=== PATIENT | male | born 1960 | race African-American/Black ===

== ENCOUNTER 2021-05-24 19:17 | Emergency (ER) | payer BC, SELFPAY ==
[2021-05-24 19:48] VITALS: BP 151/107; PULSE 97; RESP 18; TEMP 36.5; O2SAT 100
[2021-05-24 21:12] VITALS: BP 177/105; PULSE 85; RESP 15; O2SAT 98
--- NOTE | 2021-05-24 21:32 | ED.MALEGU ---
HPI - Male Genitourinary General Chief complaint: Urogenital-Male Stated complaint: erectile dysfunction Time Seen by Provider: 05/24/21 20:35 History of Present Illness HPI Narrative: 61 yo male w/ h/o htn presents to the ED for priapism. He reports that he has had a continuos erection for the past 2-3 days. He now has moderate pain in his penis. Sensation is still intact. Denies taking medication for ED. No h/o sickle cell. He did take lisinopril, amlodipine, and ibuprofen before this started. Related Data Home Medications Medication Instructions Recorded Confirmed amlodipine 05/24/21 lisinopril 05/24/21 oxybutynin chloride mg PO 05/24/21 Allergies Allergy/AdvReac Type Severity Reaction Status Date / Time No Known Allergies Allergy Verified 05/24/21 21:28 Review of Systems Review of Systems: All systems reviewed & are unremarkable except as noted in HPI and below Constitutional: Constitutional: Reports no additional constitutional complaints Cardiovascular: Cardiovascular: Denies chest pain Respiratory: Respiratory: Denies dyspnea Gastrointestinal: Gastrointestinal: Reports no additional gastrointestinal complaints Genitourinary: Genitourinary: Reports as per HPI Neurologic: Reports system reviewed and no additional complaints, except as documented [facility] Past Medical History Medical History (Updated 05/24/21 @ 23:22 by Pete Whelan MD) Hypertension Social History Social History (Updated 05/24/21 @ 22:35 by Mira Irene MD) Smoking packs per day: 0 Smoking cigarettes per day: 0.0 Smoking status: Never smoker Alcohol intake: never Substance use: never Living arrangements: with family Occupation/Education: other 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 Gender identity (if verbalized by the patient): Male Exam Const: General: healthy appearing, no acute distress and alert Orientation/consciousness: patient oriented x3 HENMT: Head: normal to inspection Neck: Neck: normal visual inspection Resp: Effort & Inspection: normal respiratory effort Auscultation: clear to auscultation bilaterally, no rales, no rhonchi and no wheezes Cardio: Jugular venous distension: no JVD Rate: regular rate Rhythm: regular rhythm Heart sounds: no murmurs GI: Inspection: non-distended GI Palp: Yes Soft to palpation and No Tenderness to palpation present (GI) : Other: Erect circumcised penis. No sign of necrosis. Moderately tender. Skin: General skin exam: normal color Neuro: General: patient oriented x3 and moves all extremities Speech: normal speech Extrem: General: no edema Psych: Appearance: well kempt Affect: normal affect Course Vital Signs Vital signs: Vital Signs Temperature 36.5 C 05/24/21 19:48 Pulse Rate 97 05/24/21 19:48 Respiratory Rate 18 05/24/21 19:48 Blood Pressure 151/107 H 05/24/21 19:48 Pulse Oximetry 100 05/24/21 19:48 Temperature 36.5 C 05/24/21 19:48 Pulse Rate 91 05/24/21 23:54 Respiratory Rate 18 05/24/21 23:54 Blood Pressure 213/120 H 05/24/21 23:54 Pulse Oximetry 99 05/24/21 23:54 MDM - Male Genitourinary MDM Narrative Medical decision making narrative: Dr. Irene from urology called. SHe came to the ED and attempted treatment. This was unsuccessful. She helped arrange transfer [facility]. He has chosen to go by private vehicle due to EMS delays. His will drive him. I feel this is reasonable. Discharge Plan Discharge Clinical Impression: Priapism Patient Disposition: Acute Care Hospital Condition: Guarded Prognosis Prescriptions: No Action lisinopril 20 mg tablet RF: 0 amlodipine 10 mg tablet RF: 0 oxybutynin chloride 5 mg tablet extended release 24hr PO RF: 0 Follow-up/Referrals: Vu Dominguez MD [Primary Care Provider] -
--- NOTE | 2021-05-24 21:49 | PC.NURSE ---
urology at bedside at this time.
--- NOTE | 2021-05-24 22:27 | WPDURCON ---
Assessment and Plan Assessment and plan (1) Priapism: Code(s): N48.30 - Priapism, unspecified Status: Acute Assessment and Plan: 61 yo AAM presenting with 3 day history of priapism after resuming his hypertension meds. At the bedside, I performed an aspiration and irrigation of the penis and multiple phenylephrine injections (see separate procedure note). Despite working on him for an hour, I was unable to resolve his priapism. I explained that due to the prolonged course of the priapism and lack of response to irrigation/aspiration/phenylephrine, he will require a shunt to resolve the priapism. He will be transferred to an academic center where a distal and/or proximal shunt could be performed (Dr Andrade at [facility] has agreed to the transfer). He was also counseled that due to the fact that he has had priapism for three days, he has significant risk of prolonged issues with erectile dysfunction. Pt voiced understanding and is amenable to this transfer. Urology Consult Note HPI Date Seen: 05/24/21 Primary Care Provider: Vu Dominguez MD Consult Narrative Narrative: Gerald Cosme is a 61 year old male presenting to ER with 3 days of priapism. He states he has had a full erection for 3 days. This started shortly after resuming lisinopril and amlodipine. He denies use of any drugs for erectile dysfunction. No history or FH of sickle cell anemia. He denies any illicit drug usage. 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 Gender identity (if verbalized by the patient): Male Meds Home Medications and Allergies Home Medications Medication Instructions Recorded Confirmed Type amlodipine 05/24/21 History lisinopril 05/24/21 History oxybutynin chloride mg PO 05/24/21 History Allergies Allergy/AdvReac Type Severity Reaction Status Date / Time No Known Allergies Allergy Verified 05/24/21 21:28 Vital Signs Vital Signs - 24 hr 05/24/21 19:48 05/24/21 21:12 Temperature 36.5 C Pulse Rate 97 85 Respiratory Rate 18 15 Blood Pressure 151/107 H 177/105 H Pulse Oximetry 100 98 Exam Const: General: cooperative, healthy appearing and acute distress (mild distress) Orientation/consciousness: patient oriented x3 HENMT: Head: normal to inspection Ears: hearing grossly normal bilaterally Chest: Chest palpation & inspection: normal inspection of the chest Resp: Effort & Inspection: normal respiratory effort Cardio: Rate: regular rate GI: Inspection: normal to inspection GI Palp: No abdominal tenderness : Penis: Yes priapism (complete erection) Meatus: meatus normal Scrotum: scrotum normal Testes: Testes normal Skin: General skin exam: normal color Lesions: no lesions Extrem: General: normal to inspection
--- NOTE | 2021-05-24 22:55 | P.OP_ITS ---
Procedure Note - Detailed Date of Procedure 05/24/21 Pre-op Diagnosis priapism Post-op Diagnosis same Procedure Performed aspiration and irrigation of the penis with intracavernosal injection of phenylephrine Surgeon Mira Irene MD Flight Deck Officer none Anesthesia local (15 cc 1% lidocaine penile block) Indications 61 yo AAM presenting with 3 days of priapism Findings rigid erection. After irrigation/aspiration/phenylephrine injection, penis was still about 80% erect. Description of Procedure Pt was correctly identified and informed consent was obtained. He was prepped and draped in a sterile fashion. A total of 15 cc 1% lidocaine was used to perform a penile block. I then advanced an 18 gauge needle into both the left and right corpora. I was able to aspirate out about 15 cc of dark old blood. I attempted to irrigate and aspirate with NS without improvement. Pt was connected to continuous monitoring and I proceeded to give 1 cc injections of phenylephrine (500 mcg/cc) every 5 minutes for a total of 6 injections. Despite the aspiration/irrigation/phenylephrine injections, his penis remained about 80% erect. At this point, it was felt that he would require transfer to an academic center for shunt procedure. Implants none Estimated Blood Loss 15 Condition stable
[2021-05-24] MEDS: LIDOCAINE HCL 1% LOCAL INJ 20 ML VIAL INFILTRATE (23:20)
[2021-05-24 23:54] VITALS: BP 213/120; PULSE 91; RESP 18; O2SAT 99
== END 2021-05-24 23:54 | disposition short-term general hospital (02) ==
PROVIDERS: Emergency Provider Emergency Medicine; PCP Emergency Medicine
DX: N48.30 Priapism, unspecified (principal); I10 Essential (primary) hypertension
CPT/HCPCS: 99282; C1751; J2370